=== PATIENT | female | born 1965 | race Caucasian/White ===

== ENCOUNTER 2020-05-30 10:35 | Outpatient (CLI) | payer OTHER, SELFPAY ==
[2020-05-30 11:05] LABS: Basophils Absolute Auto 0.1 K/mm3 (0.0-0.1); Basophils Percent Auto 0.9 % (0.2-1.2); Eosinophils Absolute Auto 0.1 K/mm3 (0-0.3); Eosinophils Percent Auto 1.9 % (0-4.4); Hematocrit 39.5 % (37.0-47.0); Immature Granulocyte Absolute 0.02 K/mm3 (0.00-0.031); Immature Granulocyte Percent A 0.3 % (0-0.5); Lymphocytes Absolute Auto 2.38 K/mm3 (0.9-3.2); Lymphocytes Percent Auto 41.1 % (18.3-44.2); Mean Corpuscular HGB Conc 32.9 g/dl (32-36); Mean Platelet Volume 10.6 fl (7.4-10.4); Monocytes Absolute Auto 0.4 K/mm3 (0.1-0.6); Monocytes Percent Auto 6.4 % (2.6-8.5); Neutrophils Absolute Auto 2.9 K/mm3 (1.3-6.7); Neutrophils Percent Auto 49.4 % (45.5-73.1); Platelet Count Result 228 k/mm3 (150-375); Red Blood Count 4.34 M/mm3 (4.2-5.4); Red Cell Distribution Width 12.4 % (11.5-14.5); White Blood Count 5.8 K/mm3 (4.5-10.0)
[2020-05-31 15:05] LABS: Chloride 102 mmol/L (98-107); Potassium 4.5 mmol/L (3.4-5.0); Sodium 138 mmol/L (137-145)
[2020-05-31 15:06] LABS: Alanine Aminotransferase 10 U/L (4-35); Albumin Level 4.3 g/dL (3.5-5.1); Alkaline Phosphatase 97 U/L (38-126); Aspartate Amino Transferase 97 U/L (14-36); Bilirubin,Total 0.6 mg/dL (0.2-1.3); Blood Urea Nitrogen 18 mg/dL (7-17); Calcium 8.9 mg/dL (8.4-10.2); Carbon Dioxide 29 mmol/L (22-30); Cholesterol 178 mg/dL (0-200); Estimated Glomerular Filt Rate > 60; Glucose 77 mg/dL (65-105); HDL Direct 54 mg/dL; LDL Cholesterol Direct 56 mg/dL; Total Protein 7.1 g/dL (6.3-8.2); Triglycerides 130 mg/dL (<150)
== END 2020-05-30 10:36 | disposition home or self-care (01) ==
LOC: ANHLAB 10:38
PROVIDERS: PCP Internal Medicine; Visit Provider Internal Medicine
DX: R53.83 Other fatigue (principal); Z13.220 Encounter for screening for lipoid disorders; E03.9 Hypothyroidism, unspecified
CPT/HCPCS: 36415; 80053; 80061; 82607; 84443; 85025

== ENCOUNTER 2020-05-31 07:36 | Outpatient (CLI) | payer OTHER, SELFPAY ==
[2020-05-31 08:12] LABS: Alanine Aminotransferase 11 U/L (4-35); Albumin Level 4.4 g/dL (3.5-5.1); Alkaline Phosphatase 100 U/L (38-126); Aspartate Amino Transferase 18 U/L (14-36); Bilirubin,Total 0.6 mg/dL (0.2-1.3); Blood Urea Nitrogen 23 mg/dL (7-17); Calcium 9.1 mg/dL (8.4-10.2); Carbon Dioxide 28 mmol/L (22-30); Chloride 104 mmol/L (98-107); Cholesterol 187 mg/dL (0-200); Estimated Glomerular Filt Rate > 60; Glucose 103 mg/dL (65-105); HDL Direct 64 mg/dL; Potassium 4.3 mmol/L (3.4-5.0); Sodium 139 mmol/L (137-145); Triglycerides 106 mg/dL (<150)
[2020-05-31 08:23] LABS: LDL Cholesterol Direct 57 mg/dL
== END 2020-05-31 07:37 | disposition home or self-care (01) ==
PROVIDERS: PCP Internal Medicine; Visit Provider Internal Medicine
DX: Z13.220 Encounter for screening for lipoid disorders (principal)
CPT/HCPCS: 36415; 80053; 80061; 82607; 84443

== ENCOUNTER 2020-05-31 16:39 | Outpatient (CLI) | payer OTHER, SELFPAY ==
[2020-05-31 18:10] LABS: Vitamin D 25 Hydroxy 25.7 ng/mL
== END 2020-05-31 16:40 | disposition home or self-care (01) ==
PROVIDERS: PCP Internal Medicine; Visit Provider Obstetrics & Gynecology
DX: R53.83 Other fatigue (principal)
CPT/HCPCS: 36415; 81291; 82306; 86038

== ENCOUNTER 2020-08-20 08:46 | Outpatient (CLI) | payer OTHER, SELFPAY ==
--- NOTE | ~2020-08-20 | MM_ITS ---
EXAMINATION: MM screening [facility] BI w jarret HISTORY: Screening TECHNIQUE: Craniocaudal and mediolateral oblique 3-D tomosynthesis images were obtained and synthetic 2-D images were generated. CAD analysis was submitted and interpreted. COMPARISON: No prior mammogram is available for comparison at this institution. BREAST PARENCHYMAL COMPOSITION: There are scattered areas of fibroglandular density. FINDINGS: There are benign-appearing masses in the right breast. There is no evidence of suspicious m ass, calcification, or architectural distortion to suggest malignancy in either breast. There has bee n no suspicious interval change. IMPRESSION: 1. No mammographic evidence of malignancy. 2. Recommend routine screening mammography in one year. BI-RADS Category 2: Benign finding(s). Reviewed, dictated and finalized at location A.
== END 2020-08-20 08:47 | disposition home or self-care (01) ==
LOC: ANHIMG 08:48
PROVIDERS: PCP Internal Medicine; Visit Provider Obstetrics & Gynecology
DX: Z12.31 Encounter for screening mammogram for malignant neoplasm of breast (principal)
CPT/HCPCS: 77063; 77067

== ENCOUNTER 2020-12-11 15:57 | Outpatient (CLI) | payer OTHER, SELFPAY ==
[2020-12-11 17:09] LABS: Basophils Absolute Auto 0.1 K/mm3 (0.0-0.1); Eosinophils Absolute Auto 0.1 K/mm3 (0-0.3); Hematocrit 40.5 % (37.0-47.0); Hemoglobin 13.5 g/dL (12.0-15.0); Immature Granulocyte Absolute 0.02 K/mm3 (0.00-0.031); Immature Granulocyte Percent A 0.3 % (0-0.5); Lymphocytes Percent Auto 37.2 % (18.3-44.2); Mean Corpuscular HGB Conc 33.3 g/dl (32-36); Mean Corpuscular Hemoglobin 30.3 pg (26-34); Mean Corpuscular Volume 90.8 fl (80-100); Mean Platelet Volume 10.4 fl (7.4-10.4); Monocytes Absolute Auto 0.3 K/mm3 (0.1-0.6); Monocytes Percent Auto 5.8 % (2.6-8.5); Neutrophils Absolute Auto 3.2 K/mm3 (1.3-6.7); Neutrophils Percent Auto 53.7 % (45.5-73.1); Platelet Count Result 240 k/mm3 (150-375); Red Blood Count 4.46 M/mm3 (4.2-5.4); Red Cell Distribution Width 12.4 % (11.5-14.5); White Blood Count 5.9 K/mm3 (4.5-10.0)
== END 2020-12-11 15:58 | disposition home or self-care (01) ==
LOC: ANHLAB 15:59
PROVIDERS: PCP Internal Medicine; Visit Provider Internal Medicine
DX: Z98.84 Bariatric surgery status (principal); E03.9 Hypothyroidism, unspecified
CPT/HCPCS: 36415; 82607; 84443; 85025

== ENCOUNTER → 2021-01-22 | Outpatient (CLI) | payer OTHER, SELFPAY ==
[2021-01-22 22:46] LABS: SARS-CoV-2 RNA PCR Negative
== END | disposition home or self-care (01) ==
LOC: ANHCOVIDDT 02:57
PROVIDERS: PCP Internal Medicine; Visit Provider Internal Medicine Critical Care Medicine
DX: R68.89 Other general symptoms and signs (principal); Z20.822 Contact with and (suspected) exposure to COVID-19
CPT/HCPCS: C9803; U0003; U0005

== ENCOUNTER 2021-01-24 09:05 | Outpatient (CLI) | payer OTHER, SELFPAY ==
--- NOTE | 2021-01-25 13:19 | WPDSLEEPSTUD ---
Sleep Study Ordering Provider: Armando Lebron DO Interpreting Physician: Lubna Jenkins MD Sleep Study Type: Split Polysomnogram Height: 1.63 m Weight: 86.636 kg Body Mass Index: 32.8 Neck Circumference (inches): 14 [place]: 21 Reason for Sleep Study Excessive daytime sleepiness Sleep History Cathleen Oliver is a 55 year old female with a history of daytime fatigue and excessive sleepiness. She has has constant loud snoring which always bothers her . There is a positive family history with her father and sister having sleep apnea. she never awakens at night with heartburn, belching or coughing. She rarely awakens from sleep feeling short of breath. She frequently has trouble sleep with a cold. She occasionally wakes up gasping for breath at night. She frequently has breathing problems at night observed by others. She rarely sweats excessively at night. She does not notice her heart pounding or beating irregularly at night. She constantly falls asleep during the day, never involuntarily and never while driving. She does not have loss of muscle tone was strong emotion. She constantly has daytime difficulties due to excessive sleepiness, works as a registered nurse. She does not feel paralyzed on waking or falling asleep. She rarely has vivid dreamlike scenes upon awakening or falling asleep. She never feels afraid to go to sleep. She rarely has nightmares. She frequently remembers her dreams. She constantly has racing thoughts. She occasionally feels sad or depressed. She rarely feels anxious. She occasionally has muscular tension. She occasionally notices parts of her body jerking. She occasionally kicks at night. She frequently has crawling and aching feelings in her legs and leg pain during the night. She really has morning jaw pain. She rarely grinds her teeth during sleep. She rarely is bothered by pain during the day, rarely is awakened by pain at night. She occasionally wakes up feeling stiff in the morning. She does not wake up with sore or achy muscles. She occasionally wakes up with pain in the neck and spine. She has had a 15 lb weight gain in the last year. Normal bedtime is 10:00 p.m. taking 3 minutes to fall asleep typically waking once at night for 5 minutes to go urinate. She is back in bed. Her wake-up time is 4:00 a.m.. On the weekend she may stay awake until 10:00 p.m. or 11:00 p.m. and wakes at 7:00 a.m.. She estimates 6-7 hours of sleep at night. She sometimes takes a nap in the afternoon or evening. A short 10-15 minute nap is not refreshing. She is always refreshed in the morning. She feels better in the morning compared to other times a day. Habits: Never smoked tobacco. Caffeine 4 cups a day. No alcohol or recreational drugs. FORMERLY [facility] Past Medical History Medical History (Updated 01/25/21 @ 14:07 by Lubna Jenkins MD) Groin cyst Thyroid disease Surgical History Surgical History Gastric bypass status for obesity H/O: hysterectomy Family History Family History Other Family history of cardiovascular disease Family history of malignant neoplasm Social History Social History Smoking status: Never smoker Alcohol intake: never Medications Home Medications Medication Instructions Recorded Confirmed Type escitalopram oxalate 10 mg tablet 10 mg PO DAILY 11/03/19 12/14/20 History levothyroxine 100 mcg tablet 100 mcg PO DAILY 11/03/19 12/14/20 History cyanocobalamin (vitamin B-12) 1,000 mcg IM MONTHLY #10 ml 12/14/20 12/14/20 Rx 1,000 mcg/mL injection solution folic acid 1 mg tablet 1 mg PO DAILY 12/14/20 12/14/20 History syringe with needle 3 mL 22 gauge #10 ea 12/14/20 12/14/20 Rx x 1 Sleep Procedure This test was performed using the [employer] multiple channel system including EOG,
[2021-01-25 14:17] VITALS: BMI 32.8
== END 2021-01-24 09:06 | disposition home or self-care (01) ==
LOC: ANHCSM 09:05
PROVIDERS: PCP Internal Medicine; Visit Provider Internal Medicine
DX: G47.33 Obstructive sleep apnea (adult) (pediatric) (principal); G47.39 Other sleep apnea
CPT/HCPCS: 95811

== ENCOUNTER 2021-05-28 14:20 | Outpatient (CLI) | payer OTHER, SELFPAY ==
--- NOTE | ~2021-05-28 | XR_ITS ---
XR foot RT min 3V DATE: 05/28/2021 14:38 INDICATION: Right foot pain TECHNIQUE: 4 views COMPARISON: None FINDINGS: There is mild osteoarthritis at the first tarsometatarsal joint and metatarsophalangeal watson nt. There is posterior calcaneal enthesopathy. Os tibiale externum, normal variant. No fracture, dislocation, periosteal reaction or bone destruction. IMPRESSION: Mild osteoarthritis at the first tarsometatarsal and first metatarsophalangeal joints Posterior calcaneal enthesopathy Reviewed, dictated and finalized at location B. IMPRESSION: Mild osteoarthritis at the first tarsometatarsal and first metatars ophalangeal joints Posterior calcaneal enthesopathy
== END 2021-05-28 14:21 | disposition home or self-care (01) ==
PROVIDERS: PCP Internal Medicine; Visit Provider Internal Medicine
DX: M19.071 Primary osteoarthritis, right ankle and foot (principal); M77.31 Calcaneal spur, right foot
CPT/HCPCS: 73630

== ENCOUNTER 2021-06-24 09:56 | Outpatient (CLI) | payer OTHER, SELFPAY ==
--- NOTE | ~2021-06-24 | XR_ITS ---
EXAMINATION: XR foot LT min 3V DATE: 06/24/2021 10:47 INDICATION: Left foot pain TECHNIQUE: Dorsoplantar, lateral, and 2 oblique views of the left foot were obtained. COMPARISON: None. FINDINGS: There is no fracture, dislocation, or subluxation. No definite soft tissue swelling is iden tified. There is mild osteoarthritis of the interphalangeal joints. Posterior and plantar enthesophyt es are noted. IMPRESSION: 1. No acute osseous abnormality. Reviewed, dictated and finalized at location B.
--- NOTE | ~2021-06-24 | XR_ITS ---
XR ankle LT min 3V DATE: 06/24/2021 10:47 INDICATION: Medial ankle and foot pain TECHNIQUE: 4 views COMPARISON: None FINDINGS: Prominent posterior and mild plantar calcaneal enthesopathy. No fracture or dislocation of the ankle or disruption of the ankle mortise. No periosteal reaction or bone destruction is evident. IMPRESSION: Calcaneal enthesopathy Reviewed, dictated and finalized at location A. IMPRESSION: Calcaneal enthesopathy
[2021-06-24 10:34] LABS: Rheumatoid Factor < 8.6 IU/ML (<12)
[2021-06-24 10:36] LABS: Alanine Aminotransferase 12 U/L (4-35); Albumin Level 4.1 g/dL (3.5-5.1); Alkaline Phosphatase 89 U/L (38-126); Anion Gap 5 mmol/L (8-16); Aspartate Amino Transferase 24 U/L (14-36); Bilirubin,Total 0.7 mg/dL (0.2-1.3); Blood Urea Nitrogen 17 mg/dL (7-17); Carbon Dioxide 29 mmol/L (22-30); Chloride 107 mmol/L (98-107); Estimated Glomerular Filt Rate > 60; Glucose 94 mg/dL (65-110); Potassium 4.1 mmol/L (3.4-5.0); Sodium 141 mmol/L (137-145); Uric Acid 5.4 mg/dL (2.5-7.5)
== END 2021-06-24 09:57 | disposition home or self-care (01) ==
PROVIDERS: PCP Internal Medicine; Visit Provider Nurse Practitioner
DX: E03.9 Hypothyroidism, unspecified (principal); M25.50 Pain in unspecified joint; E53.8 Deficiency of other specified B group vitamins; E55.9 Vitamin D deficiency, unspecified; Z13.6 Encounter for screening for cardiovascular disorders; M25.572 Pain in left ankle and joints of left foot; M79.672 Pain in left foot; M77.32 Calcaneal spur, left foot
CPT/HCPCS: 36415; 73610; 73630; 80053; 82306; 82607; 84443; 84550; 86430

== ENCOUNTER 2021-08-09 10:46 | Outpatient (CLI) | payer OTHER, SELFPAY ==
--- NOTE | ~2021-08-09 | XR_ITS ---
XR shoulder RT min 2V 08/09/2021 11:13 Indication: Chronic right shoulder pain Procedure: 4 views right shoulder Comparison: No prior studies for comparison. Findings: There is mild osteoarthritis of the glenohumeral joint. No fracture, subluxation or disloca tion. Surrounding osseous structures and soft tissues are unremarkable. Impression: 1: Mild osteoarthritis of the right glenohumeral joint. Reviewed, dictated and finalized at location A. Impression: 1: Mild osteoarthritis of the right glenohumeral joint.
--- NOTE | ~2021-08-09 | XR_ITS ---
XR shoulder LT min 2V 08/09/2021 11:13 Indication: Shoulder pain, chronic. Procedure: 4 views left shoulder Comparison: No prior studies for comparison. Findings: There is mild degenerative change of the left glenohumeral joint. There is anatomic alignme nt. No significant soft tissue abnormality. No fracture or traumatic malalignment. Impression: 1: Mild left glenohumeral joint degenerative change. Reviewed, dictated and finalized at location A. Impression: 1: Mild left glenohumeral joint degenerative change.
== END 2021-08-09 10:47 | disposition home or self-care (01) ==
LOC: ANHIMG 10:51
PROVIDERS: PCP Internal Medicine; Visit Provider Orthopaedic Surgery
DX: M19.011 Primary osteoarthritis, right shoulder (principal); M19.012 Primary osteoarthritis, left shoulder
CPT/HCPCS: 73030

== ENCOUNTER 2021-08-22 08:47 | Outpatient (CLI) | payer OTHER, SELFPAY ==
--- NOTE | ~2021-08-22 | DEXA_ITS ---
Bone Density Report Name: Cathleen Oliver Age: 56 Sex: Female Ethnicity: White Date of : 1965 Indication: postmenopausal; hysterectomy; Referring Provider: Alissa Packer Study: Bone densitometry was performed. Exam Date: August 22, 2021 Accession number: [id number] Bone Density: Region BMD T-score Z-score Classification AP Spine (L1-L4) 0.896 -1.4 -0.2 Osteopenia Femoral Neck (Left) 0.701 -1.3 -0.2 Osteopenia Total Hip (Left) 0.839 -0.8 -0.1 Normal Total Hip Bilateral Avg 0.836 -0.8 -0.2 Normal Femoral Neck (Right) 0.722 -1.1 0.0 Osteopenia Total Hip (Right) 0.832 -0.9 -0.2 Normal World Health Organization criteria for BMD impression classify patients as: Normal (T-score at or above -1.0), Osteopenia (T-score between -1.0 and -2.5), or Osteoporosis (T-score at or below -2.5). 10-year Fracture Risk(1): Major Osteoporotic Fracture 6.2% Hip Fracture 0.4% Reported Risk Factors: [place] (), Neck BMD=0.701, BMI=35.6 (1) FRAX(R) Version 3.08. Fracture probability calculated for an untreated patient. Fracture probability may be lower if the patient has received treatment. Clinical Information Provided by Patient: Has used the following medications: Vitamin D Has the following medical conditions: Hysterectomy Patient maximum height was 64 Menopause Age: 44 Drinks caffeinated beverages Onset of menses at age 14 Number of children 1 Impression: The patient has low bone mass, based on the Total Spine T-score. The patient has an estimated ten-year risk of hip fracture of 0.4% and an estimated ten-year risk of major fracture of 6.2%, based on the WHO FRAX algorithm. Discussion: BONE DENSITY IS LOW AT ONE OR MORE SKELETAL SITES. This patient's lowest T-score is low at one or more skeletal sites. It meets the World Health Organization's (WHO) criteria for ?low bone mass? (T-score between -1.0 and -2.5). The patient's 10-year risk of fracture as calculated by FRAX is less than the threshold where pharmacological therapy is recommended by the National Osteoporosis Foundation (NOF). However, all treatment decisions require clinical judgment and consideration of individual patient factors, including patient preferences, comorbidities, previous drug use, risk factors not captured in the FRAX model (e.g., frailty, falls, vitamin D deficiency, increased bone turnover, interval significant decline in bone density) and possible under or overestimation of fracture risk by FRAX. The patient should follow a healthful lifestyle (good nutrition with adequate calcium and vitamin D, and appropriate weight-bearing exercise). Follow-Up: Consider repeating this study in 2 to 3 years to reassess this patient's status, or sooner if there is some new clinical indication. Reported by: [facility] on 08/22/2021 9:28:00 AM.
--- NOTE | ~2021-08-22 | MM_ITS ---
EXAMINATION: MM screening [facility] BI w jarret HISTORY: Screening mammogram TECHNIQUE: Craniocaudal and mediolateral oblique 3-D tomosynthesis images were obtained and synthetic 2-D images were generated. CAD analysis was submitted and interpreted. COMPARISON: 08/20/2020, 04/30/2010, 11/02/2008, 10/19/2008 BREAST PARENCHYMAL COMPOSITION: There are scattered areas of fibroglandular density. FINDINGS: There is no evidence of suspicious mass, calcification, or architectural distortion to sugg est malignancy in either breast. There has been no suspicious interval change. IMPRESSION: 1. No mammographic evidence of malignancy. 2. Recommend routine screening mammography in one year. BI-RADS Category 1: Negative Reviewed, dictated and finalized at location A.
== END 2021-08-22 08:48 | disposition home or self-care (01) ==
LOC: ANHIMG 08:49
PROVIDERS: PCP Internal Medicine; Visit Provider Nurse Practitioner
DX: Z12.31 Encounter for screening mammogram for malignant neoplasm of breast (principal); Z78.0 Asymptomatic menopausal state; M85.88 Other specified disorders of bone density and structure, other site; M85.852 Other specified disorders of bone density and structure, left thigh; M85.851 Other specified disorders of bone density and structure, right thigh
CPT/HCPCS: 77063; 77067; 77080

== ENCOUNTER 2021-10-17 08:30 | Outpatient (RCR) | payer OTHER, SELFPAY ==
--- NOTE | 2021-09-02 11:53 | PTOPEVAL ---
PHYSICAL THERAPY EVALUATION AND PLAN OF CARE Thank you for referring Cathleen Oliver to [facility].? The patient is scheduled to be seen for therapy? 2x/week for 4 weeks. Please review, sign, date and return this plan of care JACKIE. I agree with and certify that the following plan of care is medically necessary. Referring Physician Date Attending Provider: Doug Schmidt MD Evaluation Diagnosis bilateral adhesive capsulitis Onset 3months Subjective Information noted initially night pain but Query Text:As Reported By Patient/ gradual worsening over time. Family Cortisone injection to bilateral shoulders and very much helped the left and reduced pain in the right from 6/10 to 4/10. Self Report Pain Assessment Right Shoulder(s) Reported Pain Level 4 Pain Description Aching Pain Frequency Chronic,Continuous Lowest Pain Intensity 4 Greatest Pain Intensity 7 Pain Aggravating Factors Exercise/Activity Pain Score Pain Score 4: Self Report Interventions Used Interventions Used By Clinicians Exercise,Joint Mobilization Upper Extremity Range of Motion Scapular/ Shoulder Range of Motion Right Shoulder Flexion - Active 120 Shoulder Abduction - Active 123 Shoulder Medial Rotation - Active right PSIS Query Text:Reach Behind the Back Left Shoulder Flexion - Active 145 Shoulder Abduction - Active 145 Shoulder Medial Rotation - Active T8 Query Text:Reach Behind the Back Upper Extremity Muscle Strength Testing Scapular/Shoulder Bilateral Shoulder Flexion Strength 5 Normal Shoulder Abduction Strength 5 Normal Shoulder Medial Rotation Strength 5 Normal Shoulder Lateral Rotation Strength 5 Normal Muscle Length Testing Muscle Length Testing Latissmus Dorsi Muscle Length (R) Moderate Tightness Upper Trapezius Muscle Length (R) Moderate Tightness Shoulder Internal Rotators Muscle Length (R) Moderate Tightness Shoulder External Rotators Muscle Length (R) Moderate Tightness Teres Major Muscle Length (R) Moderate Tightness Pectoralis Major Muscle Length (R) Moderate Tightness Palpation Assessment Palpation Palpation tender to palpation anterior shoulder; tender trigger points noted to upper trapezius General Exercise General Exercises Side Right Exercise Location shoulder Exercise Type Active/Assistive,Stretching Exercise Description discussed HEP including using Query Text:Record Sets, Reps, foam roll for mobilizations Resistance, and Position and stretching Manual Thera
--- NOTE | 2021-10-17 09:06 | PTOPEVAL ---
PHYSICAL THERAPY DISCHARGE NOTE Thank you for referring Cathleen Oliver to [facility].? Please review, sign, date and return this plan of care JACKIE. I agree with and certify that the following plan of care is medically necessary. Referring Physician Date Attending Provider: Doug Schmidt MD Discharge Diagnosis bilateral adhesive capsulitis Onset 3months Subjective Information states she is doing better. Query Text:As Reported By Patient/ Pain comes and goes. For the Family most part the pain is much improved. States that her work is not limited anymore. 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 States that her biggest limitation is hooking her bra behind her back or putting her hands in her back pockets. Self Report Pain Assessment Right Shoulder(s) Reported Pain Level 1 Pain Description Aching Pain Frequency Chronic,Continuous Pain Aggravating Factors Exercise/Activity Pain Score Pain Score 1: Self Report Interventions Used Interventions Used By Clinicians Exercise,Joint Mobilization Upper Extremity Range of Motion Scapular/ Shoulder Range of Motion Right Shoulder Flexion - Active 140 Shoulder Abduction - Active 140 Shoulder Medial Rotation - Active L2 Query Text:Reach Behind the Back Left Shoulder Flexion - Active 145 Shoulder Abduction - Active 145 Shoulder Medial Rotation - Active T8 Query Text:Reach Behind the Back Upper Extremity Muscle Strength Testing Scapular/Shoulder Bilateral Shoulder Flexion Strength 5 Normal Shoulder Abduction Strength 5 Normal Shoulder Medial Rotation Strength 5 Normal Shoulder Lateral Rotation Strength 5 Normal Muscle Length Testing Muscle Length Testing Latissmus Dorsi Muscle Length (R) Mild Tightness Upper Trapezius Muscle Length (R) Mild Tightness Shoulder Internal Rotators Muscle Length (R) Mild Tightness Shoulder External Rotators Muscle Length (R) Mild Tightness Teres Major Muscle Length (R) Mild Tightness Palpation Assessment Palpation Palpation spongey but thick end feel for PROM right shoulder in internal and external rotation PT Clinical Summary Cathleen demonstrates nearly normal ROM of the right shoulder and is normal on the l
== END 2021-10-18 11:15 | disposition home or self-care (01) ==
LOC: ANHPT 08:30
PROVIDERS: PCP Internal Medicine; Visit Provider Orthopaedic Surgery
DX: M75.01 Adhesive capsulitis of right shoulder (principal); M75.81 Other shoulder lesions, right shoulder; M75.82 Other shoulder lesions, left shoulder
CPT/HCPCS: 97110; 97140; 97162

== ENCOUNTER 2022-01-03 07:08 | Outpatient (CLI) | payer OTHER, SELFPAY ==
[2022-01-03 08:23] LABS: Alanine Aminotransferase 10 U/L (4-35); Alkaline Phosphatase 94 U/L (38-126); Anion Gap 7 mmol/L (8-16); Aspartate Amino Transferase 17 U/L (14-36); Bilirubin,Total 0.6 mg/dL (0.2-1.3); Blood Urea Nitrogen 18 mg/dL (7-17); Calcium 8.7 mg/dL (8.4-10.2); Carbon Dioxide 23 mmol/L (22-30); Chloride 108 mmol/L (98-107); Cholesterol 132 mg/dL (0-200); Estimated Glomerular Filt Rate > 60; Glucose 99 mg/dL (65-110); HDL Direct 48 mg/dL; Potassium 3.7 mmol/L (3.4-5.0); Sodium 138 mmol/L (137-145); Triglycerides 79 mg/dL (<150)
[2022-01-03 08:34] LABS: LDL Cholesterol Direct 33 mg/dL
== END 2022-01-03 07:09 | disposition home or self-care (01) ==
PROVIDERS: PCP Internal Medicine; Visit Provider Nurse Practitioner
DX: E03.9 Hypothyroidism, unspecified (principal); Z13.220 Encounter for screening for lipoid disorders; Z13.6 Encounter for screening for cardiovascular disorders; Z13.21 Encounter for screening for nutritional disorder
CPT/HCPCS: 36415; 80053; 80061; 82306; 84443

== ENCOUNTER 2022-07-12 10:12 | Outpatient (CLI) | payer OTHER, SELFPAY ==
[2022-07-12 11:06] LABS: Vitamin D 25 Hydroxy 46.8 ng/mL
== END 2022-07-12 10:13 | disposition home or self-care (01) ==
PROVIDERS: PCP Internal Medicine; Visit Provider Internal Medicine
DX: E53.8 Deficiency of other specified B group vitamins (principal); E55.9 Vitamin D deficiency, unspecified; E03.9 Hypothyroidism, unspecified
CPT/HCPCS: 36415; 82306; 82607; 84443

== ENCOUNTER 2022-07-17 08:36 | Outpatient (CLI) | payer OTHER, SELFPAY ==
[2022-07-17 09:25] LABS: Basophils Absolute Auto 0.1 K/mm3 (0.0-0.1); Eosinophils Absolute Auto 0.1 K/mm3 (0-0.3); Eosinophils Percent Auto 2.5 % (0-4.4); Hematocrit 37.4 % (37.0-47.0); Hemoglobin 11.6 g/dL (12.0-15.0); Immature Granulocyte Absolute 0.02 K/mm3 (0.00-0.031); Immature Granulocyte Percent A 0.4 % (0-0.5); Lymphocytes Percent Auto 35.2 % (18.3-44.2); Mean Corpuscular Hemoglobin 28.5 pg (26-34); Mean Corpuscular Volume 91.9 fl (80-100); Mean Platelet Volume 10.8 fl (7.4-10.4); Monocytes Absolute Auto 0.3 K/mm3 (0.1-0.6); Monocytes Percent Auto 6.3 % (2.6-8.5); Neutrophils Absolute Auto 2.8 K/mm3 (1.3-6.7); Neutrophils Percent Auto 54.6 % (45.5-73.1); Platelet Count Result 227 k/mm3 (150-375); Red Blood Count 4.07 M/mm3 (4.2-5.4); Red Cell Distribution Width 14.6 % (11.5-14.5); White Blood Count 5.1 K/mm3 (4.5-10.0)
[2022-07-17 09:55] LABS: Iron 89 ug/dL (37-170)
[2022-07-17 10:04] LABS: Percent Iron Saturation 20 % (20-50)
[2022-07-17 10:31] LABS: Ferritin 8.77 ng/mL (11.1-264)
== END 2022-07-17 08:37 | disposition home or self-care (01) ==
PROVIDERS: PCP Internal Medicine; Visit Provider Internal Medicine
DX: F50.89 Other specified eating disorder (principal)
CPT/HCPCS: 36415; 82728; 83540; 83550; 85025

== ENCOUNTER 2022-09-17 08:33 | Outpatient (CLI) | payer OTHER, SELFPAY ==
--- NOTE | ~2022-09-17 | XR_ITS ---
XR shoulder LT min 2V DATE: 09/17/2022 09:22 INDICATION: Bilateral shoulder pain, right greater than left. No known injury. TECHNIQUE: 4 views COMPARISON: 08/05/2021 left shoulder FINDINGS: No fracture or dislocation, periosteal reaction or bone destruction or abnormal soft tissue calcification. Normal alignment at the glenohumeral and acromioclavicular joints, with preservation of joint space. Osteopenia. IMPRESSION: Osteopenia Reviewed, dictated and finalized at location A. IMPRESSION: Osteopenia
--- NOTE | ~2022-09-17 | XR_ITS ---
XR shoulder RT min 2V DATE: 09/17/2022 09:22 INDICATION: Bilateral shoulder pain, right greater than left. No known injury. TECHNIQUE: 4 views COMPARISON: 08/05/2021 right shoulder FINDINGS: There is osteopenia. No fracture, dislocation, periosteal reaction or bone destruction. No abnormal soft tissue calcificat ion at the right shoulder. Normal alignment at the acromioclavicular and glenohumeral joints. IMPRESSION: Osteopenia Reviewed, dictated and finalized at location A. IMPRESSION: Osteopenia
[2022-09-17 09:22] LABS: Basophils Percent Auto 0.6 % (0.2-1.2); Eosinophils Absolute Auto 0.1 K/mm3 (0-0.3); Eosinophils Percent Auto 2.3 % (0-4.4); Hematocrit 37.8 % (37.0-47.0); Hemoglobin 12.3 g/dL (12.0-15.0); Immature Granulocyte Absolute 0.02 K/mm3 (0.00-0.031); Immature Granulocyte Percent A 0.4 % (0-0.5); Mean Corpuscular HGB Conc 32.5 g/dl (32-36); Mean Corpuscular Hemoglobin 30.2 pg (26-34); Mean Corpuscular Volume 92.9 fl (80-100); Mean Platelet Volume 10.4 fl (7.4-10.4); Monocytes Absolute Auto 0.3 K/mm3 (0.1-0.6); Monocytes Percent Auto 6.6 % (2.6-8.5); Neutrophils Absolute Auto 2.6 K/mm3 (1.3-6.7); Neutrophils Percent Auto 56.1 % (45.5-73.1); Platelet Count Result 212 k/mm3 (150-375); Red Blood Count 4.07 M/mm3 (4.2-5.4); Red Cell Distribution Width 15.5 % (11.5-14.5); White Blood Count 4.7 K/mm3 (4.5-10.0)
[2022-09-17 09:33] LABS: Alanine Aminotransferase 17 U/L (6-35); Albumin Level 4.3 g/dL (3.5-5.1); Alkaline Phosphatase 96 U/L (38-126); Anion Gap 7 mmol/L (8-16); Aspartate Amino Transferase 21 U/L (14-36); Bilirubin,Total 0.8 mg/dL (0.2-1.3); Blood Urea Nitrogen 20 mg/dL (7-17); Calcium 8.6 mg/dL (8.4-10.2); Carbon Dioxide 29 mmol/L (22-30); Chloride 103 mmol/L (98-107); Estimated Glomerular Filt Rate > 60; Glucose 95 mg/dL (65-110); Potassium 3.8 mmol/L (3.4-5.0); Sodium 139 mmol/L (137-145)
== END 2022-09-17 08:34 | disposition home or self-care (01) ==
PROVIDERS: PCP Internal Medicine; Referring Provider Orthopaedic Surgery; Visit Provider Obstetrics & Gynecology
DX: M25.511 Pain in right shoulder (principal); M25.512 Pain in left shoulder; G89.29 Other chronic pain; Z79.899 Other long term (current) drug therapy
CPT/HCPCS: 36415; 73030; 80053; 85025

== ENCOUNTER 2022-12-17 15:43 | Outpatient (CLI) | payer OTHER, SELFPAY ==
--- NOTE | ~2022-12-17 | XR_ITS ---
EXAM: XR knee LT 3V DATE: 12/17/2022 16:41 HISTORY: M17.0 - Bilateral primary osteoarthritis of knee . COMPARISON: None available. FINDINGS: Normal mineralization. No fracture or dislocation. No lytic or blastic lesion. Moderate me dial joint space narrowing. Tricompartmental osteophytosis, moderate in the lateral compartment. Quad riceps enthesopathy. No erosion or periosteal change. Soft tissues within normal limits. Small volume joint fluid IMPRESSION: Tricompartmental left knee osteoarthritis, moderate in the medial and lateral compartment s. Small left knee joint effusion. Reviewed, dictated and finalized at location K. E MAKER IMPRESSION: Tricompartmental left knee osteoarthritis, moderate in the medial a nd lateral compartments. Small left knee joint effusion.
--- NOTE | ~2022-12-17 | XR_ITS ---
EXAM: XR knee RT 3V DATE: 12/17/2022 16:41 HISTORY: M17.0 - Bilateral primary osteoarthritis of knee . COMPARISON: 10/06/2017. FINDINGS: Normal mineralization. No fracture or dislocation. No lytic or blastic lesion. Mild medial joint space narrowing. Mild tricompartmental osteophytosis. Quadriceps enthesopathy. No erosion or p eriosteal change. Soft tissues within normal limits. Small volume joint fluid. IMPRESSION: Mild tricompartmental right knee osteoarthritis. Small right knee joint effusion. Reviewed, dictated and finalized at location K. K CEMENTER HAND IMPRESSION: Mild tricompartmental right knee osteoarthritis. Small right knee j oint effusion.
--- NOTE | ~2022-12-17 | US_ITS ---
EXAMINATION: US venous doppler [facility] DATE: 12/17/2022 16:32 INDICATION: Left lower limb pain. TECHNIQUE: Grayscale ultrasound images without and with compression and Doppler ultrasound images of the left lower extremity veins were obtained. COMPARISON: None. FINDINGS: The visualized portions of left common femoral vein, profunda (deep) femoral vein, femoral vein, popl iteal vein, peroneal veins, posterior tibial veins, and greater saphenous vein outflow are patent. IMPRESSION: 1. No deep venous thrombosis. Reviewed, dictated and finalized at location A. ST AND REPERTOIRE MANAGER
== END 2022-12-17 15:44 | disposition home or self-care (01) ==
LOC: ANHIMG 15:47
PROVIDERS: PCP Family Medicine; Visit Provider Orthopaedic Surgery
DX: M79.605 Pain in left leg (principal); M79.89 Other specified soft tissue disorders; M17.0 Bilateral primary osteoarthritis of knee; M25.461 Effusion, right knee; M25.462 Effusion, left knee
CPT/HCPCS: 73562; 93971

== ENCOUNTER 2023-02-05 06:43 | Outpatient (CLI) | payer OTHER, SELFPAY ==
[2023-02-05 07:51] LABS: Alanine Aminotransferase 14 U/L (6-35); Albumin Level 4.2 g/dL (3.5-5.1); Alkaline Phosphatase 96 U/L (38-126); Anion Gap 4 mmol/L (8-16); Aspartate Amino Transferase 18 U/L (14-36); Blood Urea Nitrogen 15 mg/dL (7-17); Calcium 8.6 mg/dL (8.4-10.2); Carbon Dioxide 31 mmol/L (22-30); Chloride 103 mmol/L (98-107); Cholesterol 170 mg/dL (0-200); Estimated Glomerular Filt Rate > 60; Glucose 96 mg/dL (65-110); HDL Direct 62 mg/dL; Potassium 4.2 mmol/L (3.4-5.0); Sodium 138 mmol/L (137-145); Triglycerides 103 mg/dL (<150)
[2023-02-05 08:03] LABS: LDL Cholesterol Direct 48 mg/dL
[2023-02-05 08:06] LABS: Vitamin D 25 Hydroxy 48.6 ng/mL
== END 2023-02-05 06:44 | disposition home or self-care (01) ==
PROVIDERS: Internal Medicine; PCP Family Medicine; Visit Provider Nurse Practitioner
DX: Z13.6 Encounter for screening for cardiovascular disorders (principal); Z98.84 Bariatric surgery status; Z13.220 Encounter for screening for lipoid disorders; E55.9 Vitamin D deficiency, unspecified; E53.8 Deficiency of other specified B group vitamins; E03.9 Hypothyroidism, unspecified
CPT/HCPCS: 36415; 80053; 80061; 82306; 82607; 84443

== ENCOUNTER 2023-09-30 07:02 | Outpatient (CLI) | payer OTHER, SELFPAY ==
[2023-09-30 07:23] LABS: Basophils Absolute Auto 0.1 K/mm3 (0.0-0.1); Basophils Percent Auto 0.8 % (0.2-1.2); Eosinophils Absolute Auto 0.1 K/mm3 (0-0.3); Eosinophils Percent Auto 1.4 % (0-4.4); Hematocrit 40.2 % (37.0-47.0); Hemoglobin 13.1 g/dL (12.0-15.0); Immature Granulocyte Absolute 0.03 K/mm3 (0.00-0.031); Immature Granulocyte Percent A 0.4 % (0-0.5); Lymphocytes Absolute Auto 1.47 K/mm3 (0.9-3.2); Lymphocytes Percent Auto 17.6 % (18.3-44.2); Mean Corpuscular HGB Conc 32.6 g/dl (32-36); Mean Corpuscular Hemoglobin 32.3 pg (26-34); Monocytes Absolute Auto 0.5 K/mm3 (0.1-0.6); Monocytes Percent Auto 6.3 % (2.6-8.5); Neutrophils Absolute Auto 6.2 K/mm3 (1.3-6.7); Neutrophils Percent Auto 73.5 % (45.5-73.1); Platelet Count Result 230 k/mm3 (150-375); Red Blood Count 4.06 M/mm3 (4.2-5.4); Red Cell Distribution Width 12.5 % (11.5-14.5); White Blood Count 8.4 K/mm3 (4.5-10.0)
[2023-09-30 07:50] LABS: Iron 126 ug/dL (37-170)
[2023-09-30 08:00] LABS: Percent Iron Saturation 45 % (20-50)
[2023-09-30 08:08] LABS: Free T4 Free Thyroxine 1.35 ng/mL (0.78-2.19)
== END 2023-09-30 07:03 | disposition home or self-care (01) ==
PROVIDERS: PCP Nurse Practitioner Family; Visit Provider Family Medicine
DX: E53.8 Deficiency of other specified B group vitamins (principal); E03.9 Hypothyroidism, unspecified; E61.1 Iron deficiency
CPT/HCPCS: 36415; 82607; 82728; 83540; 83550; 84439; 84443; 85025

== ENCOUNTER 2023-12-04 07:16 | Outpatient (CLI) | payer OTHER, SELFPAY ==
--- NOTE | ~2023-12-04 | MM_ITS ---
EXAMINATION: MM screening [facility] BI w jarret HISTORY: Screening TECHNIQUE: Craniocaudal and mediolateral oblique 3-D tomosynthesis images were obtained and synthetic 2-D images were generated. CAD analysis was submitted and interpreted. COMPARISON: Comparison to multiple prior studies sequentially, with oldest reviewed study dated 03/2020. BREAST PARENCHYMAL COMPOSITION: Breast composed of scattered areas of fibroglandular density FINDINGS: Stable bilateral benign-appearing intramammary lymph nodes. There is no evidence of suspici ous mass, calcification, or architectural distortion to suggest malignancy in either breast. There mcginnis s been no suspicious interval change. IMPRESSION: 1. No mammographic evidence of malignancy. 2. Recommend routine screening mammography in one year. BI-RADS Category 1: Negative Reviewed, dictated and finalized at location A. AGE GARAGE ATTENDANT
== END 2023-12-04 07:17 | disposition home or self-care (01) ==
LOC: ANHIMG 07:18
PROVIDERS: PCP Family Medicine; Visit Provider Obstetrics & Gynecology
DX: Z12.31 Encounter for screening mammogram for malignant neoplasm of breast (principal)
CPT/HCPCS: 77063; 77067

== ENCOUNTER 2024-01-09 11:14 | Outpatient (CLI) | payer OTHER, SELFPAY ==
[2024-01-09 11:31] LABS: Hematocrit 38.9 % (37.0-47.0); Hemoglobin 12.7 g/dL (12.0-15.0); Mean Corpuscular HGB Conc 32.6 g/dl (32-36); Mean Corpuscular Hemoglobin 32.2 pg (26-34); Mean Corpuscular Volume 98.5 fl (80-100); Mean Platelet Volume 10.3 fl (7.4-10.4); Platelet Count Result 218 k/mm3 (150-375); Red Blood Count 3.95 M/mm3 (4.2-5.4); Red Cell Distribution Width 12.3 % (11.5-14.5); White Blood Count 4.8 K/mm3 (4.5-10.0)
[2024-01-09 11:46] LABS: Alanine Aminotransferase 15 U/L (6-35); Alkaline Phosphatase 98 U/L (38-126); Anion Gap 2 mmol/L (8-16); Aspartate Amino Transferase 21 U/L (14-36); Bilirubin,Total 0.9 mg/dL (0.2-1.3); Blood Urea Nitrogen 14 mg/dL (7-17); Carbon Dioxide 30 mmol/L (22-30); Chloride 106 mmol/L (98-107); Cholesterol 190 mg/dL (0-200); Estimated Glomerular Filt Rate > 60; Glucose 98 mg/dL (65-110); HDL Direct 56 mg/dL; Potassium 4.1 mmol/L (3.4-5.0); Sodium 138 mmol/L (137-145); Triglycerides 104 mg/dL (<150)
[2024-01-09 11:57] LABS: LDL Cholesterol Direct 71 mg/dL
== END 2024-01-09 11:15 | disposition home or self-care (01) ==
LOC: ANHLAB 11:17
PROVIDERS: PCP Family Medicine; Visit Provider Obstetrics & Gynecology
DX: R63.5 Abnormal weight gain (principal); Z13.9 Encounter for screening, unspecified
CPT/HCPCS: 36415; 80053; 80061; 84443; 85027

== ENCOUNTER 2024-06-21 12:36 | Outpatient (CLI) | payer OTHER, SELFPAY ==
--- NOTE | ~2024-06-21 | XR_ITS ---
XR shoulder LT min 2V Ordering provider: Marquis Vázquez MD History: . NON TRAUMA LEFT SHOULDER PAIN . Comparison: September 17, 2022 FINDINGS: BONES: No acute fracture or dislocation. JOINT SPACES: The acromioclavicular joint is normal. The glenohumeral joint is normal. SOFT TISSUES: Normal. IMPRESSION: No acute osseous abnormality left shoulder. Reviewed, dictated and finalized at location A.
== END 2024-06-21 12:37 | disposition home or self-care (01) ==
LOC: ANHIMG 12:41
PROVIDERS: PCP Family Medicine; Visit Provider Family Medicine
DX: M25.512 Pain in left shoulder (principal)
CPT/HCPCS: 73030

== ENCOUNTER 2024-07-26 09:31 | Outpatient (CLI) | payer OTHER, SELFPAY ==
--- NOTE | ~2024-07-26 | MR_ITS ---
EXAMINATION: MR shoulder LT wo con DATE: 07/26/2024 10:12 INDICATION: Impingement syndrome of the left shoulder TECHNIQUE: Magnetic resonance imaging (MRI) of the left shoulder was performed without intravenous co ntrast. Sequences included axial PD-weighted FS FSE, coronal oblique PD-weighted FS FSE, coronal obli que T2-weighted FS FSE, sagittal PD-weighted FS FSE, and sagittal T1-weighted SE. COMPARISON: None. FINDINGS: Coracoacromial arch: The acromion undersurface is flat in morphology (type I) with anterior and lateral downsloping. Tiny anterior subacromial spur at the acromial insertion of the normal coracoacromial ligament. Moderate a cromioclavicular osteoarthritis. Rotator cuff: Mild supraspinatus and infraspinatus tendinopathy without tear. The subscapularis and teres minor ten dons are normal. Normal rotator cuff muscle bulk and signal. Biceps tendon, glenoid labrum and glenohumeral cartilage: Long head of the biceps tendon is normal. The posterior superior glenoid labrum is diminutive suggest ing chronic degeneration without discrete tear. There is mild glenohumeral osteoarthritis with mild p artial-thickness cartilage loss with smooth chondral surface along the cephalad third of the glenoid and along the medial and superolateral aspect of the humeral head. Fluid: Physiologic amount of fluid in the glenohumeral joint and biceps tendon sheath. No loose osteochondr al bodies. Mild increased fluid signal in the subacromial/subdeltoid bursa consistent with mild bursi tis. Bones: Bone alignment is normal. No fracture or pathologic marrow replacing process. IMPRESSION: 1. Mild left glenohumeral osteoarthritis with degeneration of the posterior superior left acetabular labrum. 2. Moderate acromioclavicular osteoarthritis. 3. Mild supraspinatus and infraspinatus tendinopathy without tear. 4. Mild subacromial/subdeltoid bursitis. Reviewed, dictated and finalized at location B. IMPRESSION: 1. Mild left glenohumeral osteoarthritis with degeneration of the posterior sup erior left acetabular labrum. 2. Moderate acromioclavicular osteoarthritis. 3. Mild supraspinatus and infraspinatus tendinopathy without tear. 4. Mild subacromial/subdeltoid bursitis.
== END 2024-07-26 09:32 | disposition home or self-care (01) ==
PROVIDERS: PCP Family Medicine; Visit Provider Orthopaedic Surgery
DX: M75.42 Impingement syndrome of left shoulder (principal); M19.012 Primary osteoarthritis, left shoulder; M75.52 Bursitis of left shoulder
CPT/HCPCS: 73221

== ENCOUNTER 2024-08-30 01:30 | Day surgery (SDC) | payer OTHER, SELFPAY ==
[2024-08-26 13:40] VITALS: BMI 30.1
[2024-08-30 10:31] VITALS: BP 131/75; PULSE 74; RESP 14; TEMP 36.2; O2SAT 100
--- NOTE | 2024-08-30 10:42 | WPDANESEPPF ---
Anes - Initial Pre Proc Eval Procedure: Operation Date: 08/30/24 11:30 Proposed Procedures p Screening Colonoscopy - Jassi Newsome DO Date/Time: 08/30/24 10:42 Surgeon: Jassi Newsome DO Pre Op Diagnosis: neoplasm screening Patient Data Age: 59 Gender: F Height: 1.6 m Weight: 76.2 kg Last Vital Signs Temp 36.2 C L 08/30/24 10:31 Pulse 74 08/30/24 10:31 Resp 14 08/30/24 10:31 BP 131/75 08/30/24 10:31 Pulse Ox 100 08/30/24 10:31 O2 Del Method Room Air 08/30/24 10:31 Allergies Allergy/AdvReac Type Severity Reaction Status Date / Time Sulfa (Sulfonamide Allergy Unknown swelled Verified 08/30/24 10:27 Antibiotics) Home Medications Medication Instructions Recorded Confirmed Type aspirin 81 mg tablet,delayed 81 mg PO DAILY 06/24/21 08/30/24 History release levothyroxine 125 mcg tablet 125 mcg PO . q.a.m. #90 tabs 09/30/23 08/30/24 Rx ferrous sulfate 325 mg (65 mg 325 mg PO DAILY #90 tabs 03/28/24 08/30/24 Rx iron) tablet Patient hx anesthesia problems: none Family hx anesthesia problems: none Results Review: All pre-operative results and documents have been reviewed as part of the pre-operative evaluation. [facility] Past Medical History Medical History Acute bronchitis Acute non-recurrent maxillary sinusitis Anxiety Bilateral shoulder pain BMI 34.0-34.9,adult BMI 37.0-37.9, adult Breast ptosis Degenerative arthritis of knee, bilateral Encounter for vitamin deficiency screening Groin cyst Localized adiposity Lymphedema of lower extremity Micromastia Osteopenia after menopause DEXA scan with T-score -1.4 the spine, -1.3 left hip, -1.1 right hip with osteopenia 08/22/2021. PONV (postoperative nausea and vomiting) Screening for cardiovascular condition Screening for lipid disorders Suprapubic mass Surgical History Surgical History H/O: hysterectomy S/P gastric sleeve procedure (~2017) Family History Family History Father Cancer Heart disease Mother Cancer Other Family history of cardiovascular disease Family history of malignant neoplasm Social History Social History Smoking status: Never smoker Second hand tobacco smoke exposure: No Alcohol intake: current Alcohol use details: 2 drinks per mos.? Substance use: never Substance use type: does not use Do You Feel Safe in your Home?: Yes Lack of Transportation: No Lack of Food: Never True Current Housing: I Have Housing Concerned About Future Housing: No Difficulty Paying Gas/Electric Bills: No Difficulty Paying for Meds: No Currently Unemployed: No Education: Bachelor's Degree Difficulty w/ Childcare or Family Care: No Living arrangements: with family Occupation/Education: occupation Additional occupation/education comments: [employer] Gender identity (if verbalized by the patient): Female Spiritual care concerns: No Anes - Eval Final PreProcedure Day of Procedure 08/30/24 10:42 Patient weight: overweight Heart: regular rate and rhythm Lungs: clear to auscultation Airway: Mallampati scale class II Neurological: alert and oriented Last oral intake: >/= 8 hours ASA classification: III Emergent: no Anesthetic plan: proceed Anesthesia type and monitoring: general GIVS and standard monitoring Results Review: All pre-operative results and documents have been reviewed as part of the pre-operative evaluation. Informed Consent: The patient's anesthetic plan and its attendant risks and benefits were discussed with the patient/family/POA. Questions were solicited and answers provided to the satisfaction of the patient/family/POA.
[2024-08-30] MEDS: LACTATED RINGERS 1,000 ML 150 ML IV CONT (10:43)
--- NOTE | 2024-08-30 11:25 | PM.IMHP ---
H&P: HPI History of Present Illness Date/Time: 08/30/24 11:25 Chief Complaint: screening for colorectal cancer Narrative: this is a 59-year-old woman who presents for colonoscopy. Her last colonoscopy was 7 or 8 years ago. She denies any hematochezia or melena. He denies any family history of colon cancer. Review of Systems Review of Systems: All systems reviewed & are unremarkable except as noted in HPI and below Constitutional: Constitutional: Denies chills, Denies fever(s), Denies headache(s) and Denies weight loss Eyes: Eyes: Denies change in vision ENT: Denies dizziness, Denies headache(s), Denies neck mass and Denies throat swelling Cardiovascular: Cardiovascular: Denies chest pain, Denies lightheadedness and Denies dyspnea Respiratory: Respiratory: Denies cough, Denies dyspnea and Denies wheezing Gastrointestinal: Gastrointestinal: Denies abdominal pain, Denies change in bowel habits, Denies nausea and Denies vomiting Genitourinary: Genitourinary: Denies hematuria and Denies dysuria Musculoskeletal: Musculoskeletal: Reports as per HPI Integumentary/Breasts: Skin/Breast: Reports as per HPI Neurologic: Denies dizziness and Denies headache(s) Allergic/Immunologic: Allergic/Immunologic: Denies throat swelling and Denies wheezing [facility] Past Medical History Medical History Acute bronchitis Acute non-recurrent maxillary sinusitis Anxiety Bilateral shoulder pain BMI 34.0-34.9,adult BMI 37.0-37.9, adult Breast ptosis Degenerative arthritis of knee, bilateral Encounter for vitamin deficiency screening Groin cyst Localized adiposity Lymphedema of lower extremity Micromastia Osteopenia after menopause DEXA scan with T-score -1.4 the spine, -1.3 left hip, -1.1 right hip with osteopenia 08/22/2021. PONV (postoperative nausea and vomiting) Screening for cardiovascular condition Screening for lipid disorders Suprapubic mass Surgical History Surgical History H/O: hysterectomy S/P gastric sleeve procedure (~2017) Family History Family History Father Cancer Heart disease Mother Cancer Other Family history of cardiovascular disease Family history of malignant neoplasm Social History Social History Smoking status: Never smoker Second hand tobacco smoke exposure: No Alcohol intake: current Alcohol use details: 2 drinks per mos.? Substance use: never Substance use type: does not use Do You Feel Safe in your Home?: Yes Lack of Transportation: No Lack of Food: Never True Current Housing: I Have Housing Concerned About Future Housing: No Difficulty Paying Gas/Electric Bills: No Difficulty Paying for Meds: No Currently Unemployed: No Education: Bachelor's Degree Difficulty w/ Childcare or Family Care: No Living arrangements: with family Occupation/Education: occupation Additional occupation/education comments: [employer] Gender identity (if verbalized by the patient): Female Spiritual care concerns: No Meds Home Medications and Allergies Home Medications Medication Instructions Recorded Confirmed Type aspirin 81 mg tablet,delayed 81 mg PO DAILY 06/24/21 08/30/24 History release levothyroxine 125 mcg tablet 125 mcg PO . q.a.m. #90 tabs 09/30/23 08/30/24 Rx ferrous sulfate 325 mg (65 mg 325 mg PO DAILY #90 tabs 03/28/24 08/30/24 Rx iron) tablet Allergies Allergy/AdvReac Type Severity Reaction Status Date / Time Sulfa (Sulfonamide Allergy Unknown swelled Verified 08/30/24 10:27 Antibiotics) Vital Signs Vital Signs - 24 hr 08/30/24 10:31 Temperature 97.2 F L Pulse Rate 74 Respiratory Rate 14 Blood Pressure 131/75 Pulse Oximetry 100 Oxygen Delivery Room Air Exam Const: General: no acute
[2024-08-30 13:03] VITALS: BP 115/69; PULSE 78; RESP 18; O2SAT 100
[2024-08-30 13:13] VITALS: BP 115/74; PULSE 70; RESP 17; O2SAT 100
[2024-08-30 13:23] VITALS: BP 123/70; PULSE 62; RESP 21; O2SAT 100
== END 2024-08-30 13:35 | disposition home or self-care (01) ==
PROVIDERS: PCP Family Medicine; Visit Provider Surgery
PROC: 0DJD8ZZ Inspection of Lower Intestinal Tract, Via Natural or Artificial Opening Endoscopic (ICD-10-PCS; CPT 45378; principal; 2024-08-30 11:30)
DX: Z12.11 Encounter for screening for malignant neoplasm of colon (principal); F41.9 Anxiety disorder, unspecified; Z79.82 Long term (current) use of aspirin; Z98.890 Other specified postprocedural states; Z98.84 Bariatric surgery status; Z80.9 Family history of malignant neoplasm, unspecified; Z82.49 Family history of ischemic heart disease and other diseases of the circulatory system
CPT/HCPCS: 45378; J2003; J2704; J7120

== ENCOUNTER 2024-09-09 14:10 | Outpatient (CLI) | payer OTHER, SELFPAY ==
--- NOTE | ~2024-09-09 | XR_ITS ---
EXAMINATION: XR chest 2V 09/09/2024 14:20 INDICATION: Productive cough for 2 months PROCEDURE: 2 view chest COMPARISON: No prior studies for comparison. FINDINGS: The lungs are clear. The cardiomediastinal silhouette is within normal limits. There are no pleural effusions. There is no pneumothorax suspected. IMPRESSION: 1: NO ACUTE CARDIOPULMONARY DISEASE. Reviewed, dictated and finalized at location B.
== END 2024-09-09 14:11 | disposition home or self-care (01) ==
LOC: ANHIMG 14:13
PROVIDERS: PCP Family Medicine; Visit Provider Nurse Practitioner Family
DX: R05.9 Cough, unspecified (principal)
CPT/HCPCS: 71046

== ENCOUNTER 2024-09-15 15:30 | Outpatient (RCR) | payer OTHER, SELFPAY ==
--- NOTE | 2024-08-09 10:01 | OPREHPOC ---
Outpatient Therapy Plan of Care This is a Multidisciplinary Plan of Care that may contain components documented by all disciplines (PT, OT, and ST.) PT Problem 1 PT Problem #1 Knowledge Deficit PT Goal 1 Goal / Goal Update Pt to be IND with issued HEP Target Visit 4 PT Problem 2 PT Problem #2 Pain PT Goal 1 Goal / Goal Update Pt to report shoulder pain no greater than 3/10 in the last week Target Visit 10 PT Goal 2 Goal / Goal Update Pt to report 75% return to PLOF. PT Problem 3 PT Problem #3 Impaired Range of Motion PT Goal 1 Goal / Goal Update Pt to improve active shoulder flexion to 120 degrees to improve ability to get dressed Target Visit 10 PT Goal 2 Goal / Goal Update Pt to improve active shoulder abduction to 120 degrees Target Visit 10 PT Problem 4 PT Problem #4 Impaired Functional Mobil PT Goal 1 Goal / Goal Update Pt to improve quick dash from 75% disability to 20 % Target Visit 10 PT Goal 2 Goal / Goal Update Pt to be able to lift and carry 10lb from ground and place on overhead shelf. Target Visit 10
--- NOTE | 2024-08-09 10:01 | PTOPEVAL1 ---
Assessment and note entered by Kg Jones, PT, DPT Evaluation Information Assessment Status Evaluation Diagnosis L shoulder pain ICD-10 Condition Codes (PT) M25.512 Subjective Information Pt states her father over the summer so she did a lot of heavy lifting and thinks that is what aggravated her shoulder. She states she got an injection on 07/22/24 which seemed to help with the pain some. She reports having a frozen shoulder in the past and states this feels like a more severe case of that. She reports a lot of trouble sleeping. She likes to play pickleball. She states most of her daily activities are limited d/t limited ROM and pain. She is a nurse in the surgery department. Reported Pain Level Pain Score 7: Self Report Assessment PT Clinical Summary Cathleen presents to therapy today for her initial evaluation with a diagnosis of L shoulder pain. Today she demonstrates s/s consistent with a frozen shoulder, she demonstrates significant limitations in both active and passive ROM in all directions. She has active flexion to 92 deg and passive flexion to 108 deg. Pain and joint restrictions limit further motion. Skilled therapy services are indicated to address the deficits noted above, to manage pain, and to return to PLOF . Plan of Care Interventions Electrical Stimulation,Hot Pack/Cold Pack,Manual Therapy,Neuro Re-education,Patient/Caregiver Educati,Therapeutic Activities,Therapeutic Exercise PT Services Indicated Yes Treatment Frequency and 2x/wk for 10 visits Duration These treatments will address the objective and functional deficits as defined above. The patient will be advanced safely and appropriately in order for the patient to progress towards his/her prior level of function. Additional exercises will be introduced and as well as a comprehensive home exercise program upon discharge, if needed, ?to ensure carryover of functional gains achieved in the clinic. This treatment plan has been reviewed and agreement upon by the patient.
--- NOTE | 2024-08-30 15:13 | PCPTNOTE ---
Patient called & cancelled scheduled appointment this date due to being ill.
--- NOTE | 2024-09-15 16:25 | PTOPDC ---
Assessment and note entered by Kg Jones, PT, DPT Evaluation Information Assessment Status discharge Diagnosis L shoulder pain ICD-10 Condition Codes (PT) M25.512 Subjective Information Pt states her shoulder feels about the same, she has been using a TENS unit to help get through her work day and to help with sleep. Reported Pain Level Pain Score 5: Self Report Assessment PT Clinical Summary Cathleen presents to therapy today for her progress report following 8 visits of skilled therapy to treat her L frozen shoulder. Today she demonstrates s/s consistent with a frozen shoulder , she demonstrates significant limitations in both active and passive ROM in all directions. Her passive motion has improved but is still significantly limited. She is currently scheduled for a manipulation and would like to be done with therapy until her procedure.
== END 2024-09-16 10:04 | disposition home or self-care (01) ==
LOC: ANHGOSHPT 15:30
PROVIDERS: PCP Family Medicine; Visit Provider Orthopaedic Surgery
DX: M75.82 Other shoulder lesions, left shoulder (principal); M75.42 Impingement syndrome of left shoulder
CPT/HCPCS: 97014; 97110; 97140; 97161; G0283

== ENCOUNTER 2024-11-14 09:11 | Outpatient (CLI) | payer OTHER, SELFPAY ==
[2024-11-14 09:30] LABS: Basophils Absolute Auto 0.1 K/mm3 (0.0-0.1); Basophils Percent Auto 1.5 % (0.2-1.2); Eosinophils Absolute Auto 0.1 K/mm3 (0-0.3); Eosinophils Percent Auto 2.9 % (0-4.4); Hematocrit 38.1 % (37.0-47.0); Hemoglobin 12.4 g/dL (12.0-15.0); Lymphocytes Absolute Auto 1.68 K/mm3 (0.9-3.2); Lymphocytes Percent Auto 40.7 % (18.3-44.2); Mean Corpuscular HGB Conc 32.5 g/dl (32-36); Mean Corpuscular Hemoglobin 32.5 pg (26-34); Monocytes Absolute Auto 0.3 K/mm3 (0.1-0.6); Monocytes Percent Auto 7.7 % (2.6-8.5); Neutrophils Percent Auto 47.2 % (45.5-73.1); Platelet Count Result 202 k/mm3 (150-375); Red Blood Count 3.81 M/mm3 (4.2-5.4); Red Cell Distribution Width 13.2 % (11.5-14.5); White Blood Count 4.1 K/mm3 (4.5-10.0)
[2024-11-14 09:32] LABS: Add Urine Microscopic? NO; Appearance Urine Clear (Clear); Bilirubin Urine Negative (Negative); Blood Urine Negative (Negative); Color Urine Yellow (Yellow); Glucose Urine UA Negative (Negative); Ketones Urine Negative (Negative); Leukocyte Esterase Ur Negative LEU/UL (Negative); Nitrate Urine Negative (Negative); Protein Urine Negative (Negative); Specific Grav Ur 1.029 (1.001-1.035); pH Urine 5.5 (5.0-9.0)
[2024-11-14 09:51] LABS: Alanine Aminotransferase 13 U/L (6-35); Alkaline Phosphatase 76 U/L (38-126); Anion Gap -1 mmol/L (4-12); Aspartate Amino Transferase 13 U/L (14-36); Bilirubin,Total 0.8 mg/dL (0.2-1.3); Blood Urea Nitrogen 17 mg/dL (7-17); Calcium 8.9 mg/dL (8.4-10.2); Carbon Dioxide 31 mmol/L (22-30); Chloride 108 mmol/L (98-107); Cholesterol 143 mg/dL (0-200); Estimated Glomerular Filt Rate > 60; Glucose 84 mg/dL (65-110); HDL Direct 56 mg/dL; Potassium 4.1 mmol/L (3.4-5.0); Sodium 138 mmol/L (137-145); Triglycerides 110 mg/dL (<150)
[2024-11-14 09:53] LABS: Iron 90 ug/dL (37-170)
[2024-11-14 10:02] LABS: LDL Cholesterol Direct 37 mg/dL
[2024-11-14 10:03] LABS: Percent Iron Saturation 30 % (20-50)
[2024-11-14 10:08] LABS: Hemoglobin A1C 5.4 % (<5.7)
[2024-11-14 10:12] LABS: Free T4 Free Thyroxine 1.31 ng/dL (0.78-2.19)
[2024-11-14 10:59] LABS: Folic Acid 2.9 ng/mL (2.76->20)
[2024-11-18 15:23] LABS: Vitamin D 1,25 (OH)2 Total 34 pg/mL (18-72); Vitamin D2 1,25 (OH)2 <8 pg/mL; Vitamin D3 1,25 (OH)2 34 pg/mL
== END 2024-11-14 09:12 | disposition home or self-care (01) ==
LOC: ANHLAB 09:13
PROVIDERS: PCP Family Medicine; Visit Provider Family Medicine
DX: E03.9 Hypothyroidism, unspecified (principal); E55.9 Vitamin D deficiency, unspecified; E53.8 Deficiency of other specified B group vitamins; E61.1 Iron deficiency; E78.2 Mixed hyperlipidemia; E66.9 Obesity, unspecified; I89.0 Lymphedema, not elsewhere classified
CPT/HCPCS: 36415; 80053; 80061; 81003; 82607; 82652; 82728; 82746; 83036; 83540; 83550; 84439; 84443; 85025